=== PATIENT | female | born 2000 | race Caucasian/White ===

== ENCOUNTER 2020-07-29 12:12 | Observation (INO) | payer OTHER ==
[2020-07-29 12:45] VITALS: BP 122/75; PULSE 83
[2020-07-29 14:03] LABS: Appearance CLOUDY (CLEAR); Bilirubin NEGATIVE (NEGATIVE); Blood NEGATIVE Ery/ul (0-5); Epithelial Cells FEW /HPF (FEW); Glucose NEGATIVE (NEGATIVE); Ketones NEGATIVE (NEGATIVE); Leukocyte Esterase SMALL (NEGATIVE); Mucus SLIGHT /HPF (NEGATIVE); Nitrite NEGATIVE (NEGATIVE); Protein,Urine Dip NEGATIVE (Negative); Specific Gravity 1.025 (1.005-1.025); Urobilinogen NEGATIVE mg/dL (0-1)
[2020-07-29 15:57] LABS: Amphetamine,Urine NEGATIVE (NEGATIVE); Barbiturate,Urine NEGATIVE (NEGATIVE); Benzodiazepine,Urine NEGATIVE (NEGATIVE); Cocaine,Urine NEGATIVE (NEGATIVE); Methadone,Urine NEGATIVE (NEGATIVE); Opiate,Urine NEGATIVE (NEGATIVE); PCP,Urine NEGATIVE (NEGATIVE); THC,Urine NEGATIVE (NEGATIVE)
== END 2020-07-29 15:25 | disposition home or self-care (01) ==
LOC: OB 12:12
PROVIDERS: ADMIT Obstetrics & Gynecology; ATTEND Obstetrics & Gynecology
DX: Z34.83 Encounter for supervision of other normal pregnancy, third trimester (principal); Z3A.30 30 weeks gestation of pregnancy
CPT/HCPCS: 80307; 81001; 84112; G0378

== ENCOUNTER 2020-09-09 14:12 | Observation (INO) | payer OTHER ==
[2020-09-09 14:40] VITALS: BP 121/75; PULSE 89
== END 2020-09-09 15:19 | disposition home or self-care (01) ==
LOC: OB 14:12
PROVIDERS: ADMIT Obstetrics & Gynecology; ATTEND Obstetrics & Gynecology
DX: O26.893 Other specified pregnancy related conditions, third trimester (principal); Z3A.36 36 weeks gestation of pregnancy; R19.7 Diarrhea, unspecified; R42 Dizziness and giddiness
CPT/HCPCS: 59025; G0378

== ENCOUNTER 2020-09-16 00:58 | Inpatient (IN) | payer OTHER ==
[2020-09-16 18:55] LABS: Amphetamine,Urine NEGATIVE (NEGATIVE); Barbiturate,Urine NEGATIVE (NEGATIVE); Benzodiazepine,Urine NEGATIVE (NEGATIVE); Cocaine,Urine NEGATIVE (NEGATIVE); Methadone,Urine NEGATIVE (NEGATIVE); Opiate,Urine NEGATIVE (NEGATIVE); PCP,Urine NEGATIVE (NEGATIVE); THC,Urine NEGATIVE (NEGATIVE)
[2020-09-16] MEDS ORDERED: Lactated Ringers 1,000 ML IV ONE (19:14)
[2020-09-16] MEDS ORDERED: Lactated Ringers 1,000 ML IV SCH (20:30)
[2020-09-17] MEDS: TYLENOL EXTRA STRENGTH 500 MG PO PRN ×4 (00:41→20:47)
[2020-09-17] MEDS ORDERED: Sodium Chloride 100ML MINI-BAG PLUS 100 ML IV ONE (00:57)
[2020-09-17] MEDS ORDERED: OMNIPEN 2 GM ONE (00:57)
[2020-09-17] MEDS ORDERED: Zofran 4 MG/2 ML VIAL IV PRN (00:59)
[2020-09-17] MEDS ORDERED: Nubain 10 MG/ML IV PRN (00:59)
[2020-09-17] MEDS ORDERED: XYLOCAINE 1% HCL 20 ML MDV IJ PRN (00:59)
[2020-09-17] MEDS ORDERED: Phenergan 25 MG INJ IV PRN (00:59)
[2020-09-17] MEDS ORDERED: STADOL 2 MG IV PRN (00:59)
[2020-09-17] MEDS ORDERED: OMNIPEN 2 GM*** 2 G in Sodium Chloride 100ML MINI-BAG PLUS 100 ML IV ONE (00:59)
[2020-09-17] MEDS ORDERED: PITOCIN 30 UNITS/ LR 500 ML 30 UNITS/500 ML IV.SOLN. IV SCH (01:00)
[2020-09-17 01:40] LABS: Absolute Neutrophil Ct (ANC) 6.57 (1.4-6.9); BASOPHIL % 0.2 % (0.0-0.4); Basophil (Absolute #) 0.02 (0-0.4); Eosinophil % 0.5 % (0.00-5.0); Eosinophil (Absolute #) 0.05 (0-0.5); Hematocrit 36.2 % (35-47); Hemoglobin 11.9 gm/dl (12.0-16.0); Lymphocytes % 22.6 % (24.0-44.0); Mean Cell Volume 91.4 fl (78-100); Mean Corpuscular Hemoglobin 30.1 pg (26-32); Mean Corpuscular Hgb Concent. 32.9 g/dl (32-36); Monocyte (Absolute #) 0.57 (0.0-1.3); Monocytes % 6.1 % (0.0-12.0); Neutrophil % 70.6 % (36.0-66.0); Platelet Count 181 K/mm3 (150-450); Red Blood Count 3.96 M/mm3 (4.1-5.4); Red Cell Distribution Width 13.2 % (11.5-14.0); White Blood Count 9.3 K/mm3 (4.0-10.5)
[2020-09-17] MEDS ORDERED: Dermoplast Spray TP PRN (04:37)
[2020-09-17] MEDS ORDERED: Dulcolax 10 MG SUPP PR PRN (04:37)
[2020-09-17] MEDS ORDERED: LANSINOH 40 GM TOP PRN (04:37)
[2020-09-17] MEDS ORDERED: Anucort-HC SUPPOSITORY PR PRN (04:37)
[2020-09-17] MEDS ORDERED: Mylicon 80MG PO PRN (04:37)
[2020-09-17] MEDS ORDERED: CORTISONE 1% CREAM TP PRN (04:37)
[2020-09-17] MEDS ORDERED: TUCKS TP PRN (04:37)
[2020-09-17] MEDS ORDERED: Vitamin K 1 MG IM ONE (04:50)
[2020-09-17] MEDS ORDERED: ENGERIX-B 10 MCG FREE PEDIATRIC IM ONE (04:50)
[2020-09-17] MEDS ORDERED: Erythromycin 1 GM OP ONE (04:50)
[2020-09-17] MEDS ORDERED: OMNIPEN 1 GM*** 1 GM in Sodium Chloride 100ML MINI-BAG PLUS 100 ML IV SCH (05:05)
[2020-09-17] MEDS: MOTRIN 400 MG PO PRN ×3 (07:44→22:25)
[2020-09-17] MEDS: Colace 100 MG PO SCH ×2 (09:11→22:26)
[2020-09-17] MEDS: FERREX 150 PO SCH (09:11)
[2020-09-17 16:30] VITALS: O2SAT 98
[2020-09-17 18:50] LABS: Absolute Neutrophil Ct (ANC) 7.57 (1.4-6.9); BASOPHIL % 0.2 % (0.0-0.4); Basophil (Absolute #) 0.02 (0-0.4); Eosinophil % 0.5 % (0.00-5.0); Eosinophil (Absolute #) 0.05 (0-0.5); Hematocrit 37.7 % (35-47); Hemoglobin 12.2 gm/dl (12.0-16.0); Mean Cell Volume 93.1 fl (78-100); Mean Corpuscular Hemoglobin 30.1 pg (26-32); Mean Corpuscular Hgb Concent. 32.4 g/dl (32-36); Mean Platelet Volume 9.6 fl (7.5-11.0); Monocyte (Absolute #) 0.87 (0.0-1.3); Monocytes % 8.3 % (0.0-12.0); Platelet Count 161 K/mm3 (150-450); Red Blood Count 4.05 M/mm3 (4.1-5.4); Red Cell Distribution Width 13.4 % (11.5-14.0); White Blood Count 10.5 K/mm3 (4.0-10.5)
[2020-09-18] MEDS: MOTRIN 400 MG PO PRN (05:43)
[2020-09-18] MEDS: TYLENOL EXTRA STRENGTH 500 MG PO PRN ×2 (05:44→10:10)
[2020-09-18] MEDS: Colace 100 MG PO SCH (10:09)
[2020-09-18] MEDS: FERREX 150 PO SCH (10:09)
[2020-09-18 10:48] VITALS: PULSE 100
--- NOTE | 2020-09-18 16:20 | PCM.NOTE ---
Date and Time: 09/18/209 Subjective Assessment: ppd 1 pt resting in bed and doing well vss afebrile abd; soft uterus; firm lochia; mild a/p sp ppd 1 dc home tomorrow fu office 6 wks OBJECTIVE DATA Vital Signs: Vital Signs - 24 hr Temp Pulse Resp BP Pulse Ox 09/18/20 10:00 98.1 F 100 H 18 124/76 98 09/18/20 04:00 98.1 F 80 16 109/67 98 09/17/20 22:00 87.8 F 84 18 109/61 98 Pain Assessment - Last Documented Pain Intensity [Anterior/ 10 Posterior] Pain Intensity 0 Pain Scale Used 0-10 Pain Scale Intake and Output: Intake & Output 09/16/20 09/17/20 09/18/20 09/19/20 11:59 11:59 11:59 11:59 Intake Total 2500 1750 Balance 2500 1750 Weight 79.746 kg Lab Results: Lab Results-Last 24 Hours 09/17/20 09/17/20 Range/Units 00:00 18:47 WBC 10.5 (4.0-10.5) K/mm3 RBC 4.05 L (4.1-5.4) M/mm3 Hgb 12.2 (12.0-16.0) gm/dl Hct 37.7 (35-47) % MCV 93.1 (78-100) fl MCH 30.1 (26-32) pg MCHC 32.4 (32-36) g/dl RDW 13.4 (11.5-14.0) % Plt Count 161 (150-450) K/mm3 MPV 9.6 (7.5-11.0) fl Gran % 72.0 H (36.0-66.0) % Eos # (Auto) 0.05 (0-0.5) Absolute Lymphs (auto) 2.00 (1.0-4.6) Absolute Monos (auto) 0.87 (0.0-1.3) Lymphocytes % 19.0 L (24.0-44.0) % Monocytes % 8.3 (0.0-12.0) % Eosinophils % 0.5 (0.00-5.0) % Basophils % 0.2 (0.0-0.4) % Absolute Granulocytes 7.57 H (1.4-6.9) Basophils # 0.02 (0-0.4) Hep Bs Antigen Negative (Negative)
--- NOTE | 2020-09-18 16:24 | PCM.DS ---
Discharge Summary Date of Admission: 09/17/20 00:58 Date of Discharge: 09/19/20 Admitting Physician: YESENIA LANIER DO Consults: Consults on Case 09/17/20 04:37 Notify Physician ROUTINE Primary Care Provider: YESENIA LANIER DO Allergies Allergies No Known Drug Allergies Allergy (Verified 09/09/20 14:26) Hospital Summary - Hospital Course Hospital Course: pt admitted on sep 16 for being in labor and subsequently delivered on sep 17 live baby girl at [id number] without complication. during period did very well with stable h/h and now stable for discharge on sep 19. all questions answered to her satisfaction and understands to fu in office in 6 wks for care. - Vitals & Intake/Output Vital Signs: Vital Signs Temperature 98.1 F 09/18/20 10:00 Pulse Rate 100 H 09/18/20 10:00 Respiratory Rate 18 09/18/20 10:00 Blood Pressure 124/76 09/18/20 10:00 O2 Sat by Pulse Oximetry 98 09/18/20 10:00 Intake & Output: Intake & Output 09/16/20 09/17/20 09/18/20 09/19/20 11:59 11:59 11:59 11:59 Intake Total 2500 1750 Balance 2500 1750 Weight 79.746 kg - Lab Result Diagrams: 09/17/20 18:47 Lab Results-Last 24 Hrs: Lab Results-Last 24 Hours 09/17/20 09/17/20 Range/Units 00:00 18:47 WBC 10.5 (4.0-10.5) K/mm3 RBC 4.05 L (4.1-5.4) M/mm3 Hgb 12.2 (12.0-16.0) gm/dl Hct 37.7 (35-47) % MCV 93.1 (78-100) fl MCH 30.1 (26-32) pg MCHC 32.4 (32-36) g/dl RDW 13.4 (11.5-14.0) % Plt Count 161 (150-450) K/mm3 MPV 9.6 (7.5-11.0) fl Gran % 72.0 H (36.0-66.0) % Eos # (Auto) 0.05 (0-0.5) Absolute Lymphs (auto) 2.00 (1.0-4.6) Absolute Monos (auto) 0.87 (0.0-1.3) Lymphocytes % 19.0 L (24.0-44.0) % Monocytes % 8.3 (0.0-12.0) % Eosinophils % 0.5 (0.00-5.0) % Basophils % 0.2 (0.0-0.4) % Absolute Granulocytes 7.57 H (1.4-6.9) Basophils # 0.02 (0-0.4) Hep Bs Antigen Negative (Negative) Final Diagnosis/Problem List - Final Discharge Diagnosis/Problem (1) Labor abnormality, delivered Current Visit: Yes Status: Acute Code(s): O62.9 - ABNORMALITY OF FORCES OF [employer], UNSPECIFIED - Discharge Disposition: Home, Self-Care Condition: Stable Prescriptions: No Action Vits W-Ca,Fe,FA(<1Mg) [] 1 each PO DAILY Follow up with: YESENIA LANIER DO [Primary Care Provider] - 6 weeks (no heavy lifting should fu in office in 6 wks)
[2020-09-18 19:13] VITALS: BP 137/73
== END 2020-09-18 18:45 | disposition home or self-care (01) | DRG 807 ==
LOC: OB 00:58 → UNDOADMOB 17:40 → OB 17:40 → OBSVTOIN 09-17 00:58 → INTOOBSV 09-17 00:58
PROVIDERS: ADMIT Obstetrics & Gynecology; ATTEND Obstetrics & Gynecology
PROC: 10E0XZZ Delivery of Products of Conception, External Approach (ICD-10-PCS; principal; 2020-09-17)
DX: O80 Encounter for full-term uncomplicated delivery (principal); Z37.0 Single live birth; Z3A.37 37 weeks gestation of pregnancy
CPT/HCPCS: 36415; 59409; 80307; 84112; 85025; 87340; G0378; J0290; J0595; J2590; A9270-GY